=== PATIENT | female | born 1970 | race Asian ===

== ENCOUNTER 2020-08-01 10:03 | Emergency (ER) | payer OTHER ==
[~2020-08-01] VITALS: Ht 157.5 cm; Wt 63.5 kg
[2020-08-01 10:07] VITALS: TEMP 97.9
[2020-08-01 11:00] VITALS: BP 166/97
== END 2020-08-01 11:00 | disposition home or self-care (01) ==
LOC: ED 10:03
DX: N76.0 Acute vaginitis (principal); I10 Essential (primary) hypertension
CPT/HCPCS: 81000; 87490; 87590; 96372; 99283; J0696

== ENCOUNTER 2020-10-03 17:46 | Emergency (ER) | payer OTHER ==
[2020-10-13 13:00] LABS: POTASSIUM 3.4 mmol/L (3.6-5.2)
[2020-10-13 13:01] LABS: PLATELET COUNT 266 K/uL (152-353)
== END 2020-10-03 19:40 | disposition home or self-care (01) ==
LOC: ED 17:46
PROVIDERS: Emergency Medicine
DX: R10.2 Pelvic and perineal pain (principal); M79.10 Myalgia, unspecified site
CPT/HCPCS: 80053; 80307; 81000; 85027; 96372; 99283